=== PATIENT | male | born 1980 | race Caucasian/White ===

== ENCOUNTER → 2021-05-18 | Outpatient (CLI) | payer OTHER | LOC: ORTHO 10:07 | PROVIDERS: ATTEND Orthopaedic Surgery | DX: S83.241A Other tear of medial meniscus, current injury, right knee, initial encounter (principal); X58.XXXA Exposure to other specified factors, initial encounter | CPT/HCPCS: 99202 ==

== ENCOUNTER → 2021-05-30 | Outpatient (CLI) | payer OTHER ==
[~2021-05-30] MED LIST: OXC5T PO
--- NOTE | 2021-05-30 10:38 | Diagnostic Imaging Report ---
EXAMINATION: Magnetic resonance imaging of the right knee without intravenous contrast DATE: May 30, 2021. COMPARISON: None. INDICATION: 40-year-old male, right knee pain. TECHNIQUE: Multiplanar, multisequence non contrast enhanced MR imaging was accomplished. FINDINGS: MENISCI: There is an oblique tear with inferior surface extension involving the body and posterior horn of the medial meniscus. There is no medial meniscal extrusion. The lateral meniscus is intact. LIGAMENTS AND TENDONS: The anterior and posterior cruciate ligaments are intact. The medial collateral ligament is intact. The iliotibial band, mid third lateral capsular ligament, fibular collateral ligament, biceps femoris tendon and conjoined tendon are intact. The quadriceps tendon and patella ligament are intact. JOINT: The articular cartilage surfaces are intact. There is no knee joint effusion, prominent synovitis, or intra-articular body. BONE: There is unremarkable bone marrow signal. Specifically, negative for fracture, osteomyelitis, osteonecrosis, or marrow replacing process. BURSAE AND SOFT TISSUES: There is minimal fluid in the popliteal fossa without sizable Sultana's cyst. There is nonspecific prepatellar subcutaneous edema. IMPRESSION: 1. Oblique tear with inferior surface extension involving the body and posterior horn of the medial meniscus. 2. Intact lateral meniscus. 3. Intact anterior and posterior cruciate ligaments. Additional ligaments and tendons are intact. 4. No acute fracture, bone contusion, or evidence of osteonecrosis. 5. Intact articular cartilage. No knee joint effusion. Dictated by: Dictated on workstation # [id number]
== END ==
LOC: RAD 09:30
PROVIDERS: ATTEND Orthopaedic Surgery
DX: S83.241A Other tear of medial meniscus, current injury, right knee, initial encounter (principal); X58.XXXA Exposure to other specified factors, initial encounter
CPT/HCPCS: 73721

== ENCOUNTER 2021-06-01 05:40 | Outpatient (CLI) | payer SELFPAY ==
[~2021-06-01] VITALS: Ht 185.4 cm; Wt 105.8 kg
== END 2021-06-01 15:21 | disposition home or self-care (01) ==
LOC: PREOP 05:40
PROVIDERS: ATTEND Orthopaedic Surgery
DX: Z01.818 Encounter for other preprocedural examination (principal)

== ENCOUNTER 2021-06-05 08:12 | Day surgery (SDC) | payer OTHER ==
[~2021-06-05] VITALS: Ht 185 cm; Wt 105.8 kg
[2021-06-05] VITALS (8 sets, daily range): BP systolic 119–136; BP diastolic 73–95
[2021-06-05] MEDS ORDERED: LACTATED RINGERS 1,000 ML IV PRN (08:15)
[2021-06-05] MEDS ORDERED: ceFAZolin 2 GM IV Premixed 50 ML IV ONE (08:15)
[2021-06-05] MEDS ORDERED: LIDOCAINE/EPI 1%-1:200,000 (XYLOCAINE) 30 ML VIAL ONE (08:31)
[2021-06-05] MEDS ORDERED: ONDANSETRON 4 MG/2 ML (SDV) Z0FRAN ONE (08:58)
[2021-06-05] MEDS ORDERED: LIDOCAINE PF 2% 5 ML (XYLOCAINE) VIAL ONE (08:58)
[2021-06-05] MEDS ORDERED: fentaNYL INJ 100 MCG/2 ML AMP ONE (08:58)
[2021-06-05] MEDS ORDERED: SEVOFLURANE (ULTANE) 15 ML INHAL SOLN ONE ×2 (08:58→09:50)
[2021-06-05] MEDS ORDERED: proPOfol 200 MG/20 ML (DIPRIVAN) VIAL IV ONE ×2 (08:58→09:24)
[2021-06-05] MEDS ORDERED: MIDAZOLAM 2 MG/2 ML (VERSED) VIAL ONE (08:58)
[2021-06-05] MEDS ORDERED: KETOROLAC 30 MG/ML VIAL ONE (09:50)
--- NOTE | 2021-06-05 10:00 | Operative Report - Ortho ---
Operative Report Surgeon (s)/Overhead Line Worker (s) Surgeon LUZ VANG MD Overhead Line Worker n/a Pre-Operative Diagnosis Right Medial Meniscus Tear Post-Operative Diagnosis same Operative Report Date of Procedure: Jun 05, 2021 Name of Procedure Performed: Right Knee Arthroscopy with Partial Medial Meniscectomy Description & Findings After obtaining informed consent and marking the patient in the preoperative holding area, the patient was administered IV antibiotics and taken to the operating room. General anesthesia was induced. The right lower extremity was placed in the arthroscopic leg ly and the left leg was placed in the well leg ly. Surgical timeout was taken. The right lower extremity was prepped and draped in the usual sterile fashion. An anterolateral portal was established and a diagnostic knee arthroscopy was performed with the following findings: the patellofemoral portion of the joint demonstrated intact articular cartilage, the patella tracked well through the trochlear groove, the gutters were free of loose bodies, the medial compartment demonstrated posterior horn meniscal and articular cartilage, ACL was intact, lateral compartment with intact meniscus tear and intact articular cartilage. An anteromedial portal was established. Probe was inserted and the meniscal tear was explored. Basket biters were used to grossly debride the meniscal tear. Shaver was inserted and the meniscal fragments were removed and the meniscal tear was debrided to a stable border. Probe was reinserted and confirmed that the mensicectomy was stable. Instruments were withdrawn. Wounds were closed with 3-0 nylon, injected subcutaneously with local anesthetic, and dressed with xeroform, 4x4s, ABD, cast padding, and JAQUELINE wrap. Patient tolerated the procedure well and was stable to the recovery room. Anesthesia Type General Estimated Blood Loss minimal Specimen(s) collected/removed None LUZ VANG MD Jun 05, 2021 09:59
[2021-06-05] MEDS ORDERED: OXC5T PO (10:03)
[2021-06-05] MEDS ORDERED: HYDROmorphone 2 MG/ML VIAL (DILAUDID) IV ONE (10:15)
[2021-06-05] MEDS ORDERED: ONDANSETRON 4 MG/2 ML (SDV) Z0FRAN IVP PRN (10:15)
--- NOTE | 2021-06-05 14:17 | Anesthesia-General Post-Op ---
General Patient Condition Mental Status/LOC: Same as Preop Cardiovascular: Satisfactory Nausea/Vomiting: Absent Respiratory: Satisfactory Pain: Controlled Complications: Absent Post Op Complications Complications None Follow Up Care/Instructions Patient Instructions None needed. Anesthesia/Patient Condition Patient Condition Patient is doing well, no complaints, stable vital signs, no apparent adverse anesthesia problems. No complications reported per nursing. D/C home per [facility] [place] Criteria: Yes KATHERIN NEELY CRNA Jun 05, 2021 14:17
== END 2021-06-05 11:50 | disposition home or self-care (01) ==
LOC: SDC 08:12
PROVIDERS: ATTEND Orthopaedic Surgery
DX: S83.241A Other tear of medial meniscus, current injury, right knee, initial encounter (principal); E66.9 Obesity, unspecified; F17.210 Nicotine dependence, cigarettes, uncomplicated; Z68.30 Body mass index [BMI] 30.0-30.9, adult
CPT/HCPCS: 87081

== ENCOUNTER → 2021-06-15 | Outpatient (CLI) | payer OTHER | LOC: ORTHO 11:05 | PROVIDERS: ATTEND Orthopaedic Surgery | DX: Z47.89 Encounter for other orthopedic aftercare (principal); Z98.890 Other specified postprocedural states ==

== ENCOUNTER → 2021-07-20 | Outpatient (CLI) | payer OTHER | LOC: ORTHO 08:58 | PROVIDERS: ATTEND Orthopaedic Surgery | DX: Z47.89 Encounter for other orthopedic aftercare (principal) ==

== ENCOUNTER 2021-08-01 17:42 | Emergency (ER) | payer OTHER ==
[~2021-08-01] VITALS: Ht 185 cm; Wt 104.5 kg
[2021-08-01] MEDS ORDERED: IOHEXOL 350 MG/ML 100 ML (OMNIPAQUE 350) VIAL IV ONE (18:15)
[2021-08-01] MEDS ORDERED: HOLD METFORMIN - RECEIVED CONTRAST 20 ML VIAL IV SCH (18:15)
[2021-08-01] MEDS ORDERED: NS 100 ML (IVPB) BAG IV ONE (18:15)
[2021-08-01 18:21] LABS: BASOPHILS % (AUTO) 0 % (0-10); EOSINOPHILS # (AUTO) 0.2 10^3/uL (0.0-0.3); EOSINOPHILS % (AUTO) 2 % (0-10); HEMATOCRIT 44 % (40-54); HEMOGLOBIN 15.2 g/dL (13.3-17.7); LYMPHOCYTES # (AUTO) 2.6 10^3/uL (1.0-4.0); LYMPHOCYTES % (AUTO) 30 % (12-44); MEAN CORPUSCULAR HEMOGLOBIN 32 pg (25-34); MEAN CORPUSCULAR HGB CONC 35 g/dL (32-36); MEAN CORPUSCULAR VOLUME 91 fL (80-99); MEAN PLATELET VOLUME 9.3 fL (9.0-12.2); MONOCYTES # (AUTO) 0.4 10^3/uL (0.0-1.0); MONOCYTES % (AUTO) 5 % (0-12); NEUTROPHILS # (AUTO) 5.4 10^3/uL (1.8-7.8); NEUTROPHILS % (AUTO) 63 % (42-75); PLATELET COUNT 201 10^3/uL (130-400); WHITE BLOOD COUNT 8.6 10^3/uL (4.3-11.0)
--- NOTE | 2021-08-01 18:29 | ED GI ---
General Chief Complaint: Rect Problems Stated Complaint: BLOOD IN STOOL Nursing Triage Note: AMB TO ED REPORTS X 4 DAYS HAS NOTICEDBRIGHT RED BLOOD IN STOOL NO PAIN Source of Information: Patient Exam Limitations: No Limitations (MORENA LENNON APRN) History of Present Illness Date Seen by Provider: Aug 01, 2021 Time Seen by Provider: 18:11 Initial Comments Always to ER by private vehicle with reports of bright red blood per rectum with each bowel movement for the past 4 days. No lightheadedness no nausea no vomiting no abdominal pain. Had this once before couple years ago while in [facility] but it lasted only a couple of hours and went away. Denies any rectal pain. No anticoagulant use. Timing/Duration: 3-4 Days Severity/Quality: Other Radiation: No Radiation Activities at Onset: None Associated Symptoms: Denies Symptoms (MORENA LENNON APRN) Allergies and Home Medications Allergies Coded Allergies: No Known Drug Allergies (Unverified , 06/01/21) Patient Home Medication List Home Medication List Reviewed: Yes (MORENA LENNON APRN) Oxycodone Hcl (Oxyir Tablet) 5 Mg Tab, 5 MG PO Q4H Prescribed by: LUZ VANG MD on 06/05/21 1003 Review of Systems Review of Systems Constitutional: see HPI EENTM: No Symptoms Reported Respiratory: No Symptoms Reported Cardiovascular: No Symptoms Reported Gastrointestinal: See HPI; Denies Abdominal Pain, Denies Diarrhea, Denies Nausea; Rectal Bleeding Genitourinary: No Symptoms Reported Musculoskeletal: no symptoms reported Skin: no symptoms reported Psychiatric/Neurological: No Symptoms Reported Endocrine: No Symptoms Reported Hematologic/Lymphatic: No Symptoms Reported (MORENA LENNON APRN) Past Abxtmpu-Jartzd-Lltpbc Hx Patient Social History Tobacco Use?: Yes Substance use?: No Alcohol Use?: Yes (MORENA LENNON APRN) Seasonal Allergies Seasonal Allergies: No (MORENA LENNON APRN) Past Medical History Surgeries: Yes (WISDOM TEETH) Respiratory: No Currently Using CPAP: No Currently Using BIPAP: No Cardiac: No Neurological: No Genitourinary: No Gastrointestinal: Yes Gastroesophageal Reflux Musculoskeletal: No Endocrine: No HEENT: No Cancer: No Psychosocial: No Integumentary: No Blood Disorders: No (MORENA LENNON APRN) Physical Exam Vital Signs Vital Signs - First Documented 08/01/21 17:52 Temp 36.6 Pulse 73 Resp 18 B/P (MAP) 172/104 (126) Pulse Ox 98 O2 Delivery Room Air (ALEX MARCOS DO) Vital Signs Capillary Refill : (MORENA LENNON APRN) Height/Weight/BMI Height: '" Weight: lbs. oz. kg; 30.00 BMI Method: General Appearance: WD/WN, no apparent distress, other (Alert and oriented. GCS 15. He is without hypotension or tachycardia.) Respiratory: chest non-tender, lungs clear, normal breath sounds Cardiovascular: regular rate, rhythm, no murmur Gastrointestinal: normal bowel sounds, non tender, soft, other (His abdomen is diffusely NON-tender to palpation) Extremities: normal range of motion, non-tender Neurologic/Psychiatric: alert, normal mood/affect, oriented x 3 Skin: normal color, warm/dry (MORENA LENNON APRN) Progress/Results/Core Measures Results/Orders Lab Results Laboratory Tests Test 08/01/21 18:17 Range/Units White Blood Count 8.6 4.3-11.0 10^3/uL Red Blood Count 4.83 4.30-5.52 10^6/uL Hemoglobin 15.2 13.3-17.7 g/dL Hematocrit 44 40-54 % Mean Corpuscular Volume 91 80-99 fL Mean Corpuscular Hemoglobin 32 25-34 pg Mean Corpuscular Hemoglobin Concent 35 32-36 g/dL Red Cell Distribution Width 12.0 10.0-14.5 % Platelet Count 201 130-400 10^3/uL Mean Platelet Volume 9.3 9.0-12.2 fL Immature Granulocyte % (Auto) 0 % Neutrophils (%) (Auto) 63 42-75 % Lymphocytes (%) (Auto) 30 12-44 % Monocytes (%) (Auto) 5 0-12 % Eosinophils (%) (Auto) 2 0-10 % Basophils (%) (Auto) 0 0-10 % Neutrophils # (Auto) 5.4 1.8-7.8 10^3/uL Lymphocytes # (Auto) 2.6 1.0-4.0 10^3/uL Monocytes # (Auto) 0.4 0.0-1.0 10^3/uL Eosinophils # (Auto) 0.2 0.0-0.3 10^3/uL Basophils # (Auto) 0.0 0.0-0.1 10^3/uL Immature Granulocyte # (Auto) 0.0 0.0-0.1 10^3/uL Prothrombin Time 12.3 12.2-14.7 SEC INR Comment 0.9 0.8-1.4 Sodium Level 139 135-145 MMOL/L Potassium Level 4.3 3.6-5.0 MMOL/L Chloride Level 108 H 98-107 MMOL/L Carbon Dioxide Level 21 21-32 MMOL/L Anion Gap 10 5-14 MMOL/L Blood Urea Nitrogen 22 H 7-18 MG/DL Creatinine 1.11 0.60-1.30 MG/DL Estimat Glomerular Filtration Rate 85 BUN/Creatinine Ratio 20 Glucose Level 98 70-105 MG/DL Calcium Level 9.2 8.5-10.1 MG/DL Corrected Calcium 9.0 8.5-10.1 MG/DL Total Bilirubin 0.3 0.1-1.0 MG/DL Aspartate Amino Transf (AST/SGOT) 22 5-34 U/L Alanine Aminotransferase (ALT/SGPT) 30 0-55 U/L Alkaline Phosphatase 91 40-136 U/L Total Protein 6.9 6.4-8.2 GM/DL Albumin 4.2 3.2-4.5 GM/DL (PRITI,ALEX K DO) Medications Given in ED Current Medications Medications Dose Ordered Sig/Deshawn Route Start Time Stop Time Status Last Admin Dose Admin Iohexol 100 ml ONCE ONCE IV 08/01/21 18:15 08/01/21 18:16 DC 08/01/21 18:34 100 ML Sodium Chloride 100 ml ONCE ONCE IV 08/01/21 18:15 08/01/21 18:16 DC 08/01/21 18:34 80 ML (PRITI,ALEX K DO) Vital Signs/I&O 08/01/21 08/01/21 17:52 19:16 Temp 36.6 36.6 Pulse 73 81 Resp 18 16 B/P (MAP) 172/104 (126) 134/95 Pulse Ox 98 98 O2 Delivery Room Air Room Air (PRITI,ALEX K DO) Blood Pressure Mean: 126 Departure Communication (Admissions) 1900-discussed with him the need to do a digital rectal exam to evaluate for internal/external hemorrhoid, he states "any other way to do it? Ranjit Im about to just say no. I aint cool with just willingly lettin' somebody do that". Told him we could certainly do for this. He should come back for any lightheadedness or other concerns. He will need to follow-up with surgery outpatient. (MORENA ELNNON APRN) Impression Primary Impression: BRBPR (bright red blood per rectum) Disposition: 01 HOME, SELF-CARE Condition: Stable Departure-Patient Inst. Decision time for Depature: 18:53 (MORENA LENNON APRN) Referrals: RAKEL BRO BRETT D DO KIDO, TAKAAKI MD NO,LOCAL PHYSICIAN (PCP) Primary Care Physician Patient Instructions: Bloody Stools, Adult (DC) Add. Discharge Instructions: 1. Return to ER for any lightheadedness, development of any abdominal pain, any other concerns. Call a surgeon of your choosing tomorrow to make an appointment to be seen. Most likely cause of your bleeding is an internal hemorrhoid which does not cause pain but can cause a significant degree of bleeding. This would usually stop on its own. Obviously avoid any aspirin or blood thinning products. Clear liquids only for the next 24 hours and try to avoid any red- colored food or liquids. All discharge instructions reviewed with patient and/or family. Voiced understanding. ATTENDING PHYSICIAN NOTE: I WAS PHYSICALLY PRESENT ER PHYSICIAN, BUT I WAS NOT INVOLVED IN ANY DECISION MAKING OR ANY CARE OF THIS PATIENT (ALEX MARCOS DO) MORENA LENNON APRN Aug 01, 2021 18:16 ALEX MARCOS DO Aug 02, 2021 01:21
[2021-08-01 18:34] LABS: ALBUMIN 4.2 GM/DL (3.2-4.5); POTASSIUM 4.3 MMOL/L (3.6-5.0)
[2021-08-01 18:35] LABS: CALCIUM 9.2 MG/DL (8.5-10.1)
[2021-08-01 18:36] LABS: TOTAL PROTEIN 6.9 GM/DL (6.4-8.2)
[2021-08-01 18:38] LABS: BILIRUBIN,TOTAL 0.3 MG/DL (0.1-1.0)
[2021-08-01 18:39] LABS: INR 0.9 (0.8-1.4); PROTHROMBIN TIME PATIENT 12.3 SEC (12.2-14.7)
[2021-08-01 18:40] LABS: CREATININE SERUM 1.11 MG/DL (0.60-1.30)
--- NOTE | 2021-08-01 18:43 | Diagnostic Imaging Report ---
PROCEDURE: CT abdomen and pelvis with contrast. TECHNIQUE: Multiple contiguous axial images were obtained through the abdomen and pelvis after administration of intravenous contrast. Auto Exposure Controls were utilized during the CT exam to meet ALARA standards for radiation dose reduction. All CT scans use one or more of the following dose optimizing techniques: automated exposure control, MA and/or KvP adjustment based on patient size and exam type or iterative reconstruction. INDICATION: Blood in the stool for 4 days. COMPARISON: No prior studies are available for comparison. The lung bases are clear. The liver does show mild generalized low density suggestive of hepatic steatosis. Gallbladder contains a small stone. There is no biliary ductal dilatation. The pancreas and spleen are unremarkable. No adrenal mass is detected. Both kidneys contain nonobstructing calculi. The largest is on the left measuring 6 mm. No ureteral calculi or hydronephrosis is identified. Aorta is nonaneurysmal. The bowel loops are normal caliber. No obstruction is seen. Appendix is visualized and unremarkable. No inflammatory changes are seen. There is no free fluid or fluid collection identified. Bladder and prostate are unremarkable. Bony structures are nonacute. IMPRESSION: 1. Steatosis. 2. Cholelithiasis. 3. Bilateral nonobstructing nephrolithiasis. 4. No other significant abnormality is detected. Dictated by: Dictated on workstation # [id number]
[2021-08-01 19:16] VITALS: BP 134/95
== END 2021-08-01 19:15 | disposition home or self-care (01) ==
LOC: EDUNIT# 17:42 → ER 17:43
DX: K62.5 Hemorrhage of anus and rectum (principal); Z72.0 Tobacco use
CPT/HCPCS: 36415; 74177; 80053; 85025; 85610

== ENCOUNTER 2021-09-20 10:35 | Outpatient (CLI) | payer SELFPAY ==
[~2021-09-20] VITALS: Ht 185.4 cm; Wt 106.6 kg
== END 2021-09-20 11:56 | disposition home or self-care (01) ==
LOC: PREOP 10:35
PROVIDERS: ATTEND Surgery
DX: Z01.818 Encounter for other preprocedural examination (principal)

== ENCOUNTER 2021-09-25 10:05 | Day surgery (SDC) | payer OTHER ==
[~2021-09-25] VITALS: Ht 185 cm; Wt 106.6 kg
[2021-09-25] MEDS ORDERED: LACTATED RINGERS 1,000 ML IV STA (10:26)
--- NOTE | 2021-09-25 10:52 | Progress Note-Pre Operative ---
Pre-Operative Progress Note H&P Reviewed The H&P was reviewed, patient examined and no changes noted. Time Seen by Provider: 10:49 Date H&P Reviewed: September 25, 2021 Time H&P Reviewed: 10:49 Pre-Operative Diagnosis: Rectal bleed RAKEL BRO DO September 25, 2021 10:52
[2021-09-25 11:00] VITALS: BP 116/88
[2021-09-25] MEDS ORDERED: PROPOFOL INJECTION 50 ML IV ONE ×2 (11:29→11:48)
[2021-09-25 12:10] VITALS: BP 137/90
--- NOTE | 2021-09-25 12:13 | Endoscopy Discharge Instruct ---
Endo Procedure/Findings Findings 1.: Polyp 2.: Diverticulosis 3.: Internal Hemorrhoids Discharge Instructions - Activity: You might feel a little sleepy until tomorrow. This is due to the medicine you received to relax you. Until tomorrow, you should: NOT drive a car, operate machinery or power tools. NOT drink any alcoholic beverages. NOT make any important decisions or sign importortant papers. Do not return to work until tomorrow, unless otherwise instructed. Resume previous activities tomorrow. Diet: Start by taking liquids. If you tolerate liquids, advance to solid food. 1.: Colonscopy in 3 years Notify Physician - If you experience excessive bleeding, unusual abdominal pain, fever, or chest pain, contact your doctor immediately. RAKEL BRO DO September 25, 2021 12:13
--- NOTE | 2021-09-25 12:13 | Progress Note-Post Operative ---
Post-Operative Progess Note Surgeon (s)/Pmp Project Manager (s) Surgeon RAKEL BRO DO Pmp Project Manager: none Pre-Operative Diagnosis Rectal bleed Post-Operative Diagnosis polyps early diverticula int hemorrhoids Procedure & Operative Findings Date of Procedure 09/25/21 Procedure Performed/Findings Colonoscopy with snare polypectomy PROCEDURE NOTE: After informed consent was obtained, the patient was brought to the endoscopy suite, placed in bed in left lateral decubitus position. He was administered IV sedation by the MATCH UP PERSON who then monitored his vitals the entire time, heart rate, blood pressure and pulse ox and the scope was inserted, pushed all the way to about 160 cm and pushed into the cecum, took a picture of appendiceal orifice and noted the ileocecal valve. Then slowly withdrew the scope insufflating to look circumferentially at the gabriel starting in the cecum and up the ascending colon. Found two polyps here and removed them with the snare. Continued up to the hepatic flexure, then down the transverse colon, splenic flexure, into the descending colon down where I saw one early diverticula and took a picture. I thougt I saw another polyp either here or in the sigmoid, but could not find it on the way out. Finally into the rectal vault where I found a polyp, also removed with a snare. Lastly, retroflexed the scope and took a picture of the internal hemorrhoids. The patient tolerated the procedure. He was recovered in endoscopy suite. Anesthesia Type IV sedation by MATCH UP PERSON Estimated Blood Loss Estimated blood loss (mL): scant Specimens/Packing Specimens Removed asc colon polyp x 2 rectal polyp RAKEL BRO DO September 25, 2021 12:13
[2021-09-25 12:15] VITALS: BP 129/85
[2021-09-25 12:49] VITALS: BP 123/91
--- NOTE | 2021-09-25 13:03 | Anesthesia-General Post-Op ---
MAC Patient Condition Mental Status/LOC: Same as Preop Cardiovascular: Satisfactory Nausea/Vomiting: Absent Respiratory: Satisfactory Pain: Controlled Complications: Absent Post Op Complications Complications None Follow Up Care/Instructions Patient Instructions None needed. Anesthesiology Discharge Order Discharge Order Patient is doing well, no complaints, stable vital signs, no apparent adverse anesthesia problems. No complications reported per nursing. ODIN MILLER CRNA September 25, 2021 13:03
== END 2021-09-25 13:00 | disposition home or self-care (01) ==
LOC: ENDO 10:05
PROVIDERS: ATTEND Surgery
DX: D12.2 Benign neoplasm of ascending colon (principal); K62.1 Rectal polyp; K62.5 Hemorrhage of anus and rectum; K57.30 Diverticulosis of large intestine without perforation or abscess without bleeding; K64.8 Other hemorrhoids; F17.210 Nicotine dependence, cigarettes, uncomplicated
CPT/HCPCS: 88305

== ENCOUNTER 2022-01-10 05:50 | Outpatient (CLI) | payer SELFPAY ==
[~2022-01-10] VITALS: Ht 185.4 cm; Wt 106.6 kg
== END 2022-01-12 09:49 | disposition home or self-care (01) ==
LOC: PREOP 05:50
PROVIDERS: ATTEND Surgery
DX: Z01.818 Encounter for other preprocedural examination (principal); K62.5 Hemorrhage of anus and rectum